=== PATIENT | female | born 1980 | race Two or more races ===

== ENCOUNTER 2017-09-19 16:11 | Emergency (ER) | payer OTHER ==
[~2017-09-19] VITALS: Ht 157.5 cm; Wt 54.4 kg
[2017-09-19 16:30] VITALS: BP 115/70
== END 2017-09-19 18:44 | disposition home or self-care (01) ==
LOC: ER 16:14
DX: S80.01XA Contusion of right knee, initial encounter (principal); Z88.1 Allergy status to other antibiotic agents; Z88.8 Allergy status to other drugs, medicaments and biological substances; V43.62XA Car passenger injured in collision with other type car in traffic accident, initial encounter; Y93.89 Activity, other specified; Y92.410 Unspecified street and highway as the place of occurrence of the external cause; Y99.8 Other external cause status
CPT/HCPCS: 99281; A4606; Z7610; Z7502